=== PATIENT | male | born 1970 | race Caucasian/White ===

== ENCOUNTER 2024-03-22 14:03 | Emergency (ER) | payer OTHER, SELFPAY ==
[2024-03-22 14:11] VITALS: BP 167/95; PULSE 89; O2SAT 97
[2024-03-22 14:13] VITALS: BP 167/95; PULSE 75; RESP 18; TEMP 36.3; O2SAT 99; BMI 33.4
--- NOTE | 2024-03-22 14:26 | DI.RAD.S_ITS ---
PROCEDURE: XR FINGER LT MIN 2V INDICATIONS: laceration just under fingernail TECHNIQUE: AP hand, 2 views of the 5th finger(s) acquired. COMPARISON: None. FINDINGS: Bones: Comminuted and displaced 5th distal phalanx tuft fracture. Soft tissues: Skin defect over the dorsal aspect of the 5th distal digit. IMPRESSION: Comminuted and displaced 5th distal phalanx tuft fracture. Dictated by: Cristofer Goel M.D. on 03/22/2024 at 15:28 Approved by: Cristofer Goel M.D. on 03/22/2024 at 15:29
[2024-03-22] MEDS: TET,DIPH,PERTUSS(ACELL),VAC/PF 0.5 ML SYRINGE IM (14:37)
--- NOTE | 2024-03-22 16:30 | ED_ITS ---
HPI - Wound/Laceration General Chief Complaint: Wound/Laceration Stated Complaint: Finger Laceration Time Seen by Provider: 03/22/24 14:26 Source: patient Mode of arrival: Ambulatory History of Present Illness HPI narrative: Otherwise healthy 53-year-old gentleman who is on a job work site and had a metal table collapsed onto his left small finger with a partial amputation of the very tip. He is right-handed in the injuries to the left hand. Comes in for additional evaluation. There are no other injuries associated Related Data Previous Rx's Medication Instructions Recorded cephalexin 500 mg capsule 500 mg PO TID #30 caps 03/22/24 oxycodone-acetaminophen 5 mg-325 1 tab PO Q6H PRN pain #14 tabs 03/22/24 mg tablet Allergies Allergy/AdvReac Type Severity Reaction Status Date / Time No Known Drug Allergies Allergy Verified 03/22/24 14:13 Review of Systems Review of Systems Narrative: Pertinent positive and negative findings as per HPI Patient History Social History Smoking Status: Unknown if ever smoked Smoking Status: Unknown if ever smoked alcohol intake frequency: other Substance Use Type: does not use Exam Initial Vital Signs Initial Vital Signs: Vital Signs Temperature 97.4 F L 03/22/24 14:13 Pulse Rate 75 03/22/24 14:13 Respiratory Rate 18 03/22/24 14:13 Blood Pressure 167/95 H 03/22/24 14:13 Pulse Oximetry 99 03/22/24 14:13 Oxygen Delivery Method Room Air 03/22/24 14:13 General: Alert appropriate in no acute distress Respiratory: Able to speak in full sentences, no obvious respiratory distress Skin: No obvious rashes, warm and dry Neurologic: Grossly intact no obvious asymmetries or abnormalities Psych: appropriate insight and affect, cooperative Extremity: Left hand is evaluated. The distal portion of the 5th finger is partially amputated. He has a clean cut through the distal 3rd of the nail that does not seem to be involving the nail bed itself. He does still have good blood flow and sensation to the tip of the finger Procedures Laceration Repair Left small fingertip: Time of procedure: 16:57 Site: hand Side (If applicable): left Size (cm): 4 Description: linear Depth: [id number] Local Anesthetic: lidocaine 1% Amount of anesthesia used (mL): 5 (Digital block given) Pre-repair: wound explored (Small bone chips are rinsed from the wound. The distal portion of the fingernail is removed without difficulty. Proximal living portion is not involved) and irrigated extensively Skin layer closed with: nylon Skin layer suture size: 4-0 Number of sutures: 5 Technique: simple, interrupted Course Orders Ordered: ED Orders 03/22/24 14:26 XR finger LT min 2V Stat Discontinued Medications Diphtheria/Tetanus/Acell Pertussis (Tet,Diph,Pertuss(Acell),Vac/Pf 0.5 Ml Syringe) 0.5 ml IM .ONCE ONE Stop: 03/22/24 14:24 Last Admin: 03/22/24 14:37 Dose: 0.5 ml Documented By: RB Vital Signs Vital signs: Vital Signs - 8 hr 03/22/24 14:13 Temperature 97.4 F L Pulse Rate 75 Respiratory Rate 18 Blood Pressure 167/95 H Pulse Oximetry 99 Oxygen Delivery Method Room Air MDM - Wound/Laceration MDM Narrative Medical decision making narrative: 53-year-old gentleman who caught his left small finger in metal folding table tears and has a partial amputation the distal small finger. There is an associated open fracture, bone chips were rinsed from the wound. The wound actually closes nicely and the flap that is left appears to be well vascularized. It is cosmetically appropriate once closed with the paronychial edges appropriately reapproximated and no apparent injury to the nail bed itself. Patient tolerated the procedure well. He is placed on 10 days of antibiotics. [place] [employer] forms are filled out however he has [place] [employer], his boss accompanies him in the emergency de partment and understands the complications. Recommended sutures out in 14 days. Discussed the fact that this is an open fracture, the need for antibiotics and importance of immediate follow up with increasing redness pain swelling or any signs of infection.. His tetanus status is up-to-date Discharge Plan Departure Patient Disposition: Home Clinical Impression: Partial traumatic amputation of finger through phalanx Qualifiers: Encounter type: initial encounter Qualified Code(s): S68.629A - Partial traumatic transphalangeal amputation of unspecified finger, initial encounter Instructions: DI for Laceration Repair Activity Restrictions/Additional Instructions: Thank you for coming in today You almost 6 seated and cutting off the very tip of your finger. Fortunately you did not and the portion of skin that was left still has very good blood flow and apparently sensation as well. There were some minor bone chips I rinsed out of the wound. This is technically an open fracture and I would suggest you complete all 10 days of the cephalexin to prevent infection. Any signs of infection such as redness, drainage increasing pain or swelling needs to be further addressed quickly You will need to follow up with an orthopedic surgeon to have the sutures removed in approximately 14 days. If you are still in [place], please feel free to call [facility] at [phone] Make sure that you keep the wound clean and dry. It will need antibiotic ointment and a dressing for the 1st 4-5 days. After that a dressing with the small finger splint over the tip of that is so that you do not continually cause yourself pain by hitting the tip of your fingertip on solid objects. Using 400 mg of ibuprofen (2 [id number] pills) and 1 Tylenol every 6 hours can be very helpful in controlling pain. For severe pain you can use 400 mg of ibuprofen and 1 Percocet. Percocet is a narcotic and if used likely will cause constipation. I would recommend buying a stool softener. This is going to hurt more tomorrow. Keeping your hand elevated higher than your heart we will help if it is throbbing If you find that you are getting worse or develop any new symptoms, please feel free to return to the emergency department for further evaluation. Prescriptions: New cephalexin 500 mg capsule 500 mg PO TID Qty: 30 0RF oxycodone-acetaminophen 5-325 mg tablet 1 tab PO Q6H PRN (Reason: pain) Qty: 14 0RF Referrals: Miscellaneous,Doctor, [Primary Care Provider] - Stand Alone Forms: Patient Portal/API/Survey
[2024-03-22] MEDS: cephALEXin 250 MG CAPSULE 500 MG PO (16:50)
[2024-03-22 17:24] VITALS: BP 162/67; PULSE 80; RESP 18; O2SAT 98
== END 2024-03-22 17:24 | disposition home or self-care (01) ==
PROVIDERS: Emergency Provider Emergency Medicine
DX: S68.627A Partial traumatic transphalangeal amputation of left little finger, initial encounter (principal); W27.0XXA Contact with workbench tool, initial encounter; Z23 Encounter for immunization
CPT/HCPCS: 12002; 73140; 90471; 99284; 90715